=== PATIENT | male | born 1970 | race Caucasian/White ===

== ENCOUNTER 2021-03-31 10:26 | Emergency (ER) | payer OTHER ==
[~2021-03-31] VITALS: Ht 180.3 cm; Wt 63.6 kg
[2021-03-31 10:27] VITALS: BP 118/71
[2021-03-31] MEDS ORDERED: KETOROLAC 30 MG/ML 1ML VIAL IV ONE (12:25)
--- NOTE | 2021-03-31 12:55 | REP ---
INDICATION: Knee pain and swelling COMPARISON: None. TECHNIQUE: AP, lateral, bilateral oblique and sunrise views. FINDINGS: The osseous structures and joint spaces are intact and normal. There is no evidence for acute fracture or dislocation. No joint effusion is appreciated. Mild anterior swelling is suggested on sunrise view. No subcutaneous emphysema or radiodense foreign body. IMPRESSION: No acute fracture or dislocation appreciated. <Electronically signed by Trevor Bernard > 03/31/21 [id number]
--- NOTE | 2021-03-31 13:34 | REP ---
INDICATION: swelling left leg COMPARISON: None. TECHNIQUE: Bro scale and color Doppler evaluation using linear high frequency transducer. FINDINGS: Ultrasound examination of the left lower extremity deep venous structures from the common femoral vein through the popliteal vein demonstrates normal compressibility, flow and wave patterns in response to respiration and augmentation. Evaluation of the calf veins demonstrates normal compressibility of the peroneal and posterior tibial veins. There is no evidence for deep venous thrombosis. Contralateral CFV is patent and normal. IMPRESSION: No evidence for deep venous thrombosis. <Electronically signed by Trevor Bernard > 03/31/21 [id number]
== END 2021-03-31 14:08 | disposition home or self-care (01) ==
LOC: M ED 10:26
DX: M25.562 Pain in left knee (principal); Z88.8 Allergy status to other drugs, medicaments and biological substances; F17.210 Nicotine dependence, cigarettes, uncomplicated; F12.20 Cannabis dependence, uncomplicated
CPT/HCPCS: 73564; 93971; 96374; 99282; J1885

== ENCOUNTER → 2021-05-04 | Outpatient (CLI) | payer OTHER | LOC: M SOG 05-03 15:06 | PROVIDERS: ATTEND Orthopaedic Surgery Adult Reconstructive Orthopaedic Surgery | DX: M25.562 Pain in left knee (principal) ==

== ENCOUNTER 2021-05-15 22:32 | Emergency (ER) | payer OTHER ==
[~2021-05-15] VITALS: Ht 180.3 cm; Wt 56.8 kg
[2021-05-16] MEDS ORDERED: ONDANSETRON 4 MG ORAL DISINTEGRATING TAB PO ONE (00:30)
[2021-05-16 00:47] VITALS: O2SAT 96
[2021-05-16 02:05] VITALS: BP 121/74
[2021-05-16] MEDS ORDERED: ONDA4TAB6 PO (02:09)
[2021-05-16] MEDS ORDERED: NIRM1TAB PO (02:09)
== END 2021-05-16 02:28 | disposition home or self-care (01) ==
LOC: M ED 22:32
DX: U07.1 COVID-19 (principal)
CPT/HCPCS: 71045; 87804; 99284; Q0162

== ENCOUNTER 2022-07-29 13:50 | Emergency (ER) | payer OTHER ==
[~2022-07-29] VITALS: Ht 180.3 cm; Wt 65.9 kg
[~2022-07-29 13:50] MED LIST: NIRM1TAB PO; ONDA4TAB6 PO
[2022-07-29] MEDS ORDERED: NS 1,000 ML IV ONE (14:10)
[2022-07-29 15:08] LABS: BASO # 0.1 10^3/uL (0.0-0.2); BASO % 0.7 % (0.0-1.0); EOS # 0.1 10^3/uL (0.0-0.5); EOS % 0.8 % (0.0-3.0); HEMATOCRIT 41.1 % (42.0-52.0); HEMOGLOBIN 13.6 g/dl (13.5-17.5); LYMPH # 1.5 10^3/uL (1.5-5.0); LYMPH % 16.2 % (24.0-44.0); MEAN CORPUSCULAR HGB CONC 33.1 g/dl (32.0-36.5); MEAN CORPUSCULAR VOLUME 96.7 fl (80.0-96.0); MONO # 0.5 10^3/uL (0.0-0.8); MONO % 5.6 % (2.0-8.0); NEUTROPHILS # 6.9 10^3/uL (1.5-8.5); NEUTROPHILS % 76.4 % (36.0-66.0); PLATELET COUNT, AUTOMATED 349 10^3/uL (150-450); RED BLOOD COUNT 4.25 10^6/uL (4.30-6.10)
[2022-07-29 15:39] LABS: ETHYL ALCOHOL (ETHANOL) 0.003 % (0.000-0.010)
[2022-07-29 15:40] LABS: BLOOD UREA NITROGEN 21 MG/DL (9-23); CALCIUM LEVEL 8.2 MG/DL (8.5-10.1); CARBON DIOXIDE LEVEL 24 MMOL/L (20-31); CHLORIDE LEVEL 106 MMOL/L (98-107); CREATININE FOR GFR 0.78 MG/DL (0.70-1.30); GLOMERULAR FILTRATION RATE > 60.0 (>56); GLUCOSE, FASTING 94 MG/DL (60-100); MAGNESIUM LEVEL 1.8 MG/DL (1.8-2.4); POTASSIUM SERUM 4.4 MMOL/L (3.5-5.1); SODIUM LEVEL 139 MMOL/L (136-145)
[2022-07-29 15:42] LABS: CK-MB VALUE MASS 4.1 NG/ML (<3.6)
[2022-07-29 15:45] LABS: FREE T4 1.02 NG/DL (0.89-1.76); THYROID STIMULATING HORMONE 0.626 uIU/ML (0.55-4.78)
[2022-07-29 15:48] LABS: CPK CREATINE PHOSPHOKINASE 358 U/L (46-171); MB/CK RELATIVE INDEX 1.14 (< OR =4)
[2022-07-29 16:28] LABS: AMPHETAMINES LEVEL URINE NEGATIVE (NEGATIVE); BARBITURATES URINE NEGATIVE (NEGATIVE); BENZODIAZEPINES URINE NEGATIVE (NEGATIVE); COCAINE METABOLITE URINE NEGATIVE (NEGATIVE); METHADONE URINE NEGATIVE (NEGATIVE); OPIATES URINE NEGATIVE (NEGATIVE); PHENCYCLIDINE URINE NEGATIVE (NEGATIVE)
[2022-07-29 16:30] LABS: CK-MB VALUE MASS 3.8 NG/ML (<3.6)
[2022-07-29 16:30] LABS: CANNABINOIDS URINE POSITIVE (NEGATIVE)
[2022-07-29 16:31] LABS: MB/CK RELATIVE INDEX 1.1 (< OR =4)
[2022-07-29 16:58] VITALS: O2SAT 97
[2022-07-29 17:48] VITALS: BP 117/77
== END 2022-07-29 17:51 | disposition home or self-care (01) ==
LOC: M ED 13:50 → EDBD 13:50 → M ED 17:51
DX: R55 Syncope and collapse (principal); Z88.8 Allergy status to other drugs, medicaments and biological substances